=== PATIENT | female | born 1995 | race Caucasian/White ===

== ENCOUNTER 2017-07-29 16:15 | Emergency (ER) | payer OTHER ==
[2017-07-29] MEDS: ACETAMINOPHEN 325 MG TAB PO (17:19)
[2017-07-29] MEDS: LIDOCAINE 1%/EPI (MDV) 50 ML INJ INJ (17:29)
[2017-07-29] MEDS: NEOMYC/POLYMYX/BACIT 30 GM OINT TOP (17:59)
== END 2017-07-29 18:13 | disposition home or self-care (01) ==
LOC: FTE 16:15
DX: L02.811 Cutaneous abscess of head [any part, except face] (principal)
CPT/HCPCS: 10060; 99283-25